=== PATIENT | male | born 1960 | race Caucasian/White ===

== ENCOUNTER 2017-02-27 05:35 | Emergency (ER) | payer OTHER ==
[~2017-02-27] VITALS: Ht 180.3 cm; Wt 88.5 kg
[~2017-02-27 05:35] MED LIST: ALLEGRA180 MG PO; IBUPROFEN600 MG PO; LEVAQUIN500 MG PO; TYLENOL WITH C1 EACH PO; TYLENOL325 MG PO
[2017-02-27] MEDS ORDERED: NIFEDIPINE10 MG PO (05:48)
[2017-02-27] MEDS ORDERED: NORCO 5-325 TA1 EACH PO (06:10)
[2017-02-27] MEDS ORDERED: DOXYCYCLINE HY100 MG PO (06:10)
== END 2017-02-27 06:38 | disposition home or self-care (01) ==
LOC: ED 05:35
DX: S61.210A Laceration without foreign body of right index finger without damage to nail, initial encounter (principal); I10 Essential (primary) hypertension; Z90.49 Acquired absence of other specified parts of digestive tract; Z98.890 Other specified postprocedural states; Z79.899 Other long term (current) drug therapy; W26.0XXA Contact with knife, initial encounter
CPT/HCPCS: 90471; 90715; 99283

== ENCOUNTER 2021-04-17 17:23 | Emergency (ER) | payer OTHER ==
[~2021-04-17] VITALS: Ht 180.3 cm; Wt 93.0 kg
[~2021-04-17 17:23] MED LIST changes: +DOXYCYCLINE HY100 MG PO; +NIFEDIPINE10 MG PO; +NORCO 5-325 TA1 EACH PO
[2021-04-17] MEDS ORDERED: FAMCICLOVIR500 MG PO (18:05)
[2021-04-17] MEDS ORDERED: PREDNISONE20 MG PO (18:17)
== END 2021-04-17 18:17 | disposition home or self-care (01) ==
LOC: ED 17:23
DX: G51.0 Bell's palsy (principal); I10 Essential (primary) hypertension; Z85.6 Personal history of leukemia; Z90.89 Acquired absence of other organs
CPT/HCPCS: 99283; J7512

== ENCOUNTER 2021-12-03 06:52 | Day surgery (SDC) | payer OTHER ==
[~2021-12-03] VITALS: Ht 180.3 cm; Wt 98.0 kg
[~2021-12-03 06:52] MED LIST changes: +FAMCICLOVIR500 MG PO; +NIFEDIPINE ER60 M1 PO; +PREDNISONE20 MG PO
--- NOTE | 2021-12-03 08:07 | NUR ---
12/03/21 0807 Gina Lowe 0802 PATIENT ARRIVES TO PACU AWAKE BUT DROWSY, SLEEPING WHEN NOT STIMULATED. RESP EVEN AND UNLABORED, ROOM AIR SATS >92%.
--- NOTE | 2021-12-04 06:10 | OR ---
[facility] [address], [place] [address] Signed DATE OF OPERATION: 12/03/2021 SURGEON: Blue De León MD PREOPERATIVE DIAGNOSES: 1. Personal history of hyperplastic colonic polyp in 2005. 2. Internal hemorrhoids. 3. Diverticulosis. 4. Sigmoidectomy in 2011 with Jama side-to-end colorectal anastomosis. POSTOPERATIVE DIAGNOSES: 1. Minimal internal hemorrhoids. 2. Jama colorectal anastomosis at 20 cm. 3. 5 mm polyp at 60 cm. 4. 4 mm polyp at 40 cm. PROCEDURE: Colonoscopy with hot biopsy. ESTIMATED BLOOD LOSS: None. INDICATIONS: Wilma is a 61-year-old gentleman, asked to see me for followup colonoscopy. Dr. Vargas did his colonoscopy in 2005 at the age of 45. He had rectal bleeding at that time. He had a tiny hyperplastic polyp removed. He was said to have internal hemorrhoids. There was no diverticulosis at that time. He did well with Versed and fentanyl. I helped him with a colonoscopy in 2010 at age of 50 for the recurrent persistent diverticulitis. I performed his open sigmoid resection with Jama side-to-end colorectal anastomosis in 2011. He was age 51. He said he has done great ever since. 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 He said there is no family history of colon cancer or polyps. In the office, I gave him a pamphlet on colonoscopy. He remembers the test quite well. There is risk including, but not limited to gas bloating, crampy abdominal pain, bleeding, perforation requiring surgery, and missed diagnosis. We also discussed the need for the IV conscious sedation. He had expressed understanding and wished to proceed. PROCEDURE NOTE: Wilma was taken into our endoscopy suite and placed in the left lateral decubitus position. He was given a total of 5 mg of Versed and 100 mcg of fentanyl to cover the Electronically Signed By: BLUE DE LEÓN MD 12/04/21 0610 PATIENT NAME: WILMA KIRKLAND OPERATIVE REPORT DATE OF : 62 REPORT #: [id number] PHYSICIAN: BLUE DE LEÓN MD PCP: ANA ALVAREZ REPORT IS CONFIDENTIAL AND NOT TO BE RELEASED WITHOUT AUTHORIZATION [facility] [address], [place] [address] Signed case. A digital rectal exam was performed and this was unremarkable. He had good sphincter tone. No external hemorrhoids. The adult colonoscope had been introduced and advanced all around into the cecum under direct visualization of the camera without difficulty. His prep was good. We could easily see the appendiceal orifice and the ileocecal valve. We took pictures throughout for photodocumentation. He had two polyps removed with the help of hot biopsy forceps. Once again, there was no diverticulosis remaining. We could easily see the anastomosis at 20 cm. It is well healed. There is no granulation tissue or ulceration. The rectum itself was unremarkable. Upon retroflexion of the scope, there was minimal internal hemorrhoid tissue. After this, the gas was suctioned out and the colonoscope removed. Wilma tolerated the procedure quite well. RECOMMENDATIONS: I will see Wilma back in my office in 7 to 14 days to review his results. Blue De León MD ALB/MODL /[id number] cc: MD Ana Hicks PA Copies: BLUE DE LEÓN MD, LINDA PA ~ Electronically Signed By: BLUE DE LEÓN MD 12/04/21 0610 PATIENT NAME: WILMA KIRKLAND Joleen OPERATIVE REPORT DATE OF : 62 REPORT #: [id number] PHYSICIAN: BLUE DE LEÓN MD PCP: ANA ALVAREZ REPORT IS CONFIDENTIAL AND NOT TO BE RELEASED WITHOUT AUTHORIZATION
--- NOTE | 2021-12-04 17:12 | PATH ---
[facility] [address] [place], [place] [address] Signed SPECIMEN(S): A COLON POLYP AT 60 CM SPECIMEN(S): B COLON POLYP AT 48 CM SPECIMEN SOURCE: A. COLON POLYP AT 60 CM B. COLON POLYP AT 48 CM CLINICAL HISTORY: Colonoscopy. History of polyps, diverticulosis, internal hemorrhoids. Postop: Internal hemorrhoids, colon polyps. FINAL PATHOLOGIC DIAGNOSIS: A. Colon, polyp at 60 cm, polypectomy: - Tubular adenoma. - Negative for high-grade dysplasia or malignancy. B. Colon, polyp at 48 cm, polypectomy: - Favor cauterized tubular adenoma, see comment. - Negative for high-grade dysplasia or malignancy. COMMENT: Regarding specimen B: Additional deeper levels were examined. There is epithelial atypia that is favored be low-grade dysplasia, however cautery artifact precludes definitive histologic classification. NAL:cml:[id number] MICROSCOPIC EXAMINATION: Histologic sections of all submitted blocks are examined by light microscopy. These findings, together with the gross examination, support the pathologic diagnosis. GROSS DESCRIPTION: Two specimens are received in two containers, labeled "DD." A. The specimen, labeled "DD, colon polyp at 60," is received in formalin and consists of one ybarra soft tissue fragment that measures 0.2 cm in greatest dimension. The specimen is entirely submitted in cassette (A1). B. The specimen, labeled "DD, colon polyp at 48 cm," is received in formalin and consists of one ybarra soft tissue fragment that measures 0.1 cm in greatest dimension. The specimen is entirely submitted in cassette (B1). PATIENT NAME: WILMA KIRKLAND PATHOLOGY DATE OF : 62 REPORT #: [id number] PHYSICIAN: CHELO WILLARD PCP: SACHA ALVAREZ REPORT IS CONFIDENTIAL AND NOT TO BE RELEASED WITHOUT AUTHORIZATION [facility] [address] [place] [address] Signed JS (under the direct supervision of a pathologist) The Gross Description was prepared using a voice recognition system. The report was reviewed for accuracy; however, sound-alike word errors, addition and/or deletions may occur. If there is any question about this report, please contact Client Services. PERFORMING LABORATORY: The technical component was performed by [facility] [address] (CLIA# [id number]). Professional interpretation was performed by [facility], [address] [address] (CLIA# [id number]). Diagnostician: Sandra Gibbs MD Pathologist Electronically Signed 12/04/2021 Copies: ~ PATIENT NAME: WILMA KIRKLAND PATHOLOGY DATE OF : 62 REPORT #: [id number] PHYSICIAN: CHELO PATHOLOGY PCP: SACHA ALVAREZ REPORT IS CONFIDENTIAL AND NOT TO BE RELEASED WITHOUT AUTHORIZATION
== END 2021-12-03 08:35 | disposition home or self-care (01) ==
LOC: DS 06:52 → OPS 06:52 → DS 09:00
PROVIDERS: ATTEND Colon & Rectal Surgery
PROC: 0DBE8ZX Excision of Large Intestine, Via Natural or Artificial Opening Endoscopic, Diagnostic (ICD-10-PCS; principal; 2021-12-03 09:00)
DX: Z12.11 Encounter for screening for malignant neoplasm of colon (principal); D12.6 Benign neoplasm of colon, unspecified; K64.0 First degree hemorrhoids; E66.9 Obesity, unspecified; K57.30 Diverticulosis of large intestine without perforation or abscess without bleeding; Z90.49 Acquired absence of other specified parts of digestive tract; Z68.29 Body mass index [BMI] 29.0-29.9, adult
CPT/HCPCS: 99153; G0500; J2250; J3010; J7121

== ENCOUNTER 2025-04-25 19:45 | Emergency (ER) | payer OTHER ==
[~2025-04-25] VITALS: Ht 180.3 cm; Wt 95.1 kg
[2025-04-25 20:22] LABS: BASOPHILS 1.3 % (0.2-1.2); EOSINOPHILS 4.2 % (0.8-7.0); LYMPHOCYTES 31.1 % (21.8-53.1); MCH 29.3 PG (25.7-32.2); MCHC 32.6 g/dL (32.3-36.5); MCV 89.9 fL (79.0-92.2); MONOCYTES 9.5 % (5.3-12.2); NEUTROPHILS 53.6 % (34.0-67.9); RBC 5.15 M/uL (4.63-6.08)
[2025-04-25 20:38] LABS: ALT (SGPT) 19.0 U/L (14-59); AST (SGOT) 14.0 U/L (15-37); GLOMERULAR FILTRATION RATE,EST 92.0 mL/min (>60); PROTEIN, TOTAL 7.3 g/dL (6.4-8.2); UREA NITROGEN 19.0 mg/dL (7-18)
[2025-04-25 20:40] LABS: INR 0.97 (0.80-1.30); PROTIME 12.2 Sec (11.2-14.2)
[2025-04-25 22:19] VITALS: BP 144/95
== END 2025-04-25 22:33 | disposition home or self-care (01) ==
LOC: ED 19:45
PROVIDERS: Internal Medicine
DX: M79.81 Nontraumatic hematoma of soft tissue (principal); I10 Essential (primary) hypertension
CPT/HCPCS: 36415; 80053; 82550; 85025; 85379; 85610; 85730; 99284-25